=== PATIENT | male | born 1985 | race American Indian/Alaskan Native ===

== ENCOUNTER 2017-01-09 01:55 | Emergency (ER) | payer SELFPAY ==
[2017-01-09] MEDS ORDERED: DECADRON IM STA (06:01)
--- NOTE | 2017-01-09 06:01 | Emergency Department Report ---
ED Rash HPI - HPI Chief Complaint: Skin Rash Stated Complaint: ECZEMA Time Seen by Provider: 01/09/17 03:26 Duration: 3 Days Location: Back, Abdomen, Upper Extremities Suspected Cause: Other (reports flareup of eczema) Rash Symptoms: Yes Itching (to affected areas on back abdomen and upper extremity.), Yes Peeling (2 areas on back, abdomen and upper extremities), No Facial Swelling, No Tongue/Oral Swelling, No Breathing Difficulties, No Choking Sensation, No Wheezing/Dyspnea, No Blistering, No Fever, No Lightheaded, No Malaise, No Myalgias Severity: moderate (denies any pain but reports itching in) Other History: Patient here reports that he has a flare up of his eczema and he takes triamcinolone and would like to have refill. Denies any wheezing, cough, stridor, shortness of breath or chest pain. Denies any fever or chills. Denies Any nausea or vomiting. ED Review of Systems ROS: Stated complaint: ECZEMA Other details as noted in HPI Comment: All other systems reviewed and negative Constitutional: denies: chills, fever Eyes: denies: eye pain, eye discharge ENT: denies: ear pain, throat pain, congestion Respiratory: no symptoms reported Cardiovascular: denies: chest pain, palpitations, edema, syncope Gastrointestinal: denies: abdominal pain, nausea, vomiting, diarrhea, constipation Musculoskeletal: denies: back pain, joint swelling, arthralgia, myalgia Skin: rash, pruritus. denies: lesions Neurological: denies: headache, weakness, numbness, paresthesias, confusion, abnormal gait, vertigo ED Past Medical Hx - Past Medical History Previous Medical History?: Yes Hx Asthma: Yes Additional medical history: Eczema - Surgical History Past Surgical History?: No - Family History Family history: no significant - Social History Smoking Status: Never Smoker Substance Use Type: None - Medications Home Medications: Home Medications Medication Instructions Recorded Confirmed Last Taken Type Amoxicillin/K Clav Tab [Augmentin 1 tab PO Q12HR #14 tab 06/26/16 Unknown Rx 875 mg] Fluticasone [Flonase] 1 spray NS QDAY #1 bottle 06/26/16 Unknown Rx Triamcinolone Aceton 0.1% (Nf) 1 applic TP BID #2 tube 01/09/17 Unknown Rx [Kenalog (NF)] methylPREDNISolone [Medrol Dose 4 mg PO DAILY #1 tab.ds.pk 01/09/17 Unknown Rx Nikko] Rash Exam - Exam General: Vital signs noted. No distress. Alert and acting appropriately. This is a 31-year-old male well-nourished well-developed in no acute distress HEENT: No Periorbital Edema, No Conjuctival Injection, No Chemosis, No Perioral Edema, No Tongue Edema, No Uvular Edema, No Compromised Airway, No Drooling Lungs: Yes Good Air Exchange, No Wheezes, No Ronchi, No Stridor, No Cough, No Labored Respirations, No Retractions, No Use of Accessory Muscles, No Other Abnormal Lung Sounds Skin: Yes Excoriations, Yes Other (patient with eczematous rash to anterior and posterior torso and upper extremity. Hyperpigmented, with scaling and dry skin. ), No Urticarial Rash, No Maculopapular Rash, No Morbilliform rash, No Weeping, No Tenderness, No Erythema, No Edema, No Encrustations Other: Positive: Abdomen Normal, Neurologic Normal, Musculoskeletal Normal ED Course Vital Signs 01/09/17 02:30 Temperature 98.1 F Pulse Rate 62 Respiratory 16 Rate Blood Pressure 160/84 O2 Sat by Pulse 98 Oximetry - Reevaluation(s) Reevaluation #1: 01/09/17 07:03 She given Decadron 10 mg IM in emergency room for rash ED Medical Decision Making - Medical Decision Making ED course: Patient here reports eczema flare without any respiratory symptoms. Given Decadron 10 mg IM. Patient will be given and steroids orally and topically for treatment. Fernie understands that he has a follow-up with dermatology and/or his primary care physician which she does say he has a primary care physician. Assessment/plan 1. Eczema flare 2. Pruritic disorder Pt instructed to follow-up with his primary care physician and/or cobol application developer in 2 days. Patient given for Medrol Dosepak, Atarax and triamcinolone ointment. Critical care attestation.: If time is entered above; I have spent that time in minutes in the direct care of this critically ill patient, excluding procedure time. ED Disposition Clinical Impression: Pruritus Eczema Qualifiers: Eczema type: unspecified Qualified Code(s): L30.9 - Dermatitis, unspecified Disposition: DC-01 TO HOME OR SELFCARE Is pt being admited?: No Does the pt Need Aspirin: No Condition: Stable Instructions: Itchy Skin (ED), Eczema (ED) Additional Instructions: Please keep affected area clean and dry Increase your fluid intake Follow Up with cobol application developer as instructed Take medication as prescribed Prescriptions: methylPREDNISolone [Medrol Dose Nikko] 4 mg PO DAILY #1 tab.ds.pk Triamcinolone Aceton 0.1% (Nf) [Kenalog (NF)] 1 applic TP BID #2 tube Referrals: PRIMARY CARE, [Primary Care Provider] - 3-5 Days YSABEL GILLIAM MD [Staff Physician] - 3-5 Days Forms: Accompanied Note, Work/School Release Form(ED)
[2017-01-09 07:43] VITALS: BP 141/91
== END 2017-01-09 07:43 | disposition home or self-care (01) ==
LOC: ED 01:55
DX: L30.9 Dermatitis, unspecified (principal); L29.9 Pruritus, unspecified; J45.909 Unspecified asthma, uncomplicated
CPT/HCPCS: 96372

== ENCOUNTER 2017-07-03 00:34 | Emergency (ER) | payer SELFPAY ==
[2017-07-03] MEDS ORDERED: NACL 0.9% 1000 ML 1,000 ML ONE (00:54)
[2017-07-03] MEDS ORDERED: PEPCID IV ONE (04:14)
--- NOTE | 2017-07-03 05:35 | Emergency Department Report ---
ED Rash HPI - HPI Chief Complaint: Skin Rash Stated Complaint: ECZEMA Time Seen by Provider: 07/03/17 05:28 Duration: 1 week Location: Back, Upper Extremities (elbows), Lower Extremities (shins ) Suspected Cause: Unknown Rash Symptoms: Yes Itching, Yes Peeling, No Facial Swelling, No Tongue/Oral Swelling, No Breathing Difficulties, No Choking Sensation, No Wheezing/Dyspnea, No Blistering, No Fever, No Lightheaded, No Malaise, No Myalgias Severity: severe Other History: This is a 31 y.o. male presents with eczema rash to bilateral elbows, back, and bilateral shins. Patient states his skin has been clear for years and don't know what is causing flare to reoccur. He went to ER last month and given steroids and trimacinolone cream. He is currently taking steriods and need more cream. Denies SOB, swelling, and discharge. ED Review of Systems ROS: Stated complaint: ECZEMA Other details as noted in HPI Constitutional: denies: chills, fever Respiratory: denies: cough, shortness of breath, wheezing Cardiovascular: denies: chest pain, palpitations Gastrointestinal: denies: abdominal pain, nausea, diarrhea Skin: rash (itchy rash to elbows, shins, and back). denies: lesions Neurological: denies: headache, weakness, paresthesias ED Past Medical Hx - Past Medical History Previous Medical History?: Yes Hx Asthma: Yes Additional medical history: Eczema - Social History Smoking Status: Never Smoker - Medications Home Medications: Home Medications Medication Instructions Recorded Confirmed Last Taken Type Amoxicillin/K Clav Tab [Augmentin 1 tab PO Q12HR #14 tab 06/26/16 Unknown Rx 875 mg] Fluticasone [Flonase] 1 spray NS QDAY #1 bottle 06/26/16 Unknown Rx Triamcinolone Aceton 0.1% (Nf) 1 applic TP BID #2 tube 01/09/17 Unknown Rx [Kenalog (NF)] methylPREDNISolone [Medrol Dose 4 mg PO DAILY #1 tab.ds.pk 01/09/17 Unknown Rx Nikko] Triamcinolone 0.1% [Kenalog 0.1% 1 applic TP TID #60 gram 07/03/17 Unknown Rx CREAM] Rash Exam - Exam General: Vital signs noted. No distress. Alert and acting appropriately. HEENT: No Periorbital Edema, No Conjuctival Injection, No Chemosis, No Perioral Edema, No Tongue Edema, No Uvular Edema, No Compromised Airway, No Drooling Lungs: Yes Good Air Exchange, No Wheezes, No Ronchi, No Stridor, No Cough, No Labored Respirations, No Retractions, No Use of Accessory Muscles, No Other Abnormal Lung Sounds Heart: Yes Regular, No Murmur Skin: Yes Erythema, Yes Other (erythema crusting rash to posterior elbows, back , and anterior shins), No Urticarial Rash, No Maculopapular Rash, No Morbilliform rash, No Bulla(e), No Excoriations, No Weeping, No Tenderness, No Edema, No Encrustations ED Course Vital Signs 07/03/17 00:40 Temperature 98.3 F Pulse Rate 74 Respiratory 20 Rate Blood Pressure 152/94 O2 Sat by Pulse 99 Oximetry ED Medical Decision Making - Medical Decision Making This is a 31-year-old male that presents with itchy rash. History of eczema for 1 week. Patient is stable and was examined by me. He is currently taking prednisone and out of triamcinolone cream. Refilled kenalog cream. Referral to dermatology. Discussed plan with patient. He agreed with ER plan. Discharged home stable. Follow up with dermatology. Critical care attestation.: If time is entered above; I have spent that time in minutes in the direct care of this critically ill patient, excluding procedure time. ED Disposition Clinical Impression: Acute eczema Disposition: DC-01 TO HOME OR SELFCARE Is pt being admited?: No Does the pt Need Aspirin: No Condition: Stable Instructions: Eczema (ED) Additional Instructions: Keep skin moisturized daily after bathing with eucerion or estee lotion. Follow up with dermatology or [facility]. Prescriptions: Triamcinolone 0.1% [Kenalog 0.1% CREAM] 1 applic TP TID #60 gram Referrals: [facility] [Outside] - 3-5 Days [facility] [Outside] - 3-5 Days [facility] [Outside] - 3-5 Days Time of Disposition: 06:00 Print Language: PUERTO RICAN
[2017-07-03 06:14] VITALS: BP 148/91
== END 2017-07-03 06:14 | disposition home or self-care (01) ==
LOC: ED 00:34
DX: L30.9 Dermatitis, unspecified (principal); J45.909 Unspecified asthma, uncomplicated
CPT/HCPCS: 99282; J7030

== ENCOUNTER 2020-04-02 09:28 | Emergency (ER) | payer SELFPAY ==
[2020-04-02 10:02] VITALS: BP 148/81
--- NOTE | 2020-04-02 11:43 | Emergency Department Report ---
ED General Adult HPI - General Chief complaint: Skin Rash Stated complaint: SKIN IRRITATION Time Seen by Provider: 04/02/20 10:24 Source: patient Mode of arrival: Ambulatory Limitations: No Limitations - History of Present Illness Initial comments: 34 yo AA M pt presents with complaints of eczema flare x 4-5 days. States rash is very itchy and mainly on his arms and torso. He denies an pain, redness, or drainage -: Sudden Severity scale (0 -10): 0 Improves with: none - Related Data Previous Rx's Medication Instructions Recorded Last Taken Type Amoxicillin/K Clav Tab [Augmentin 1 tab PO Q12HR #14 tab 06/26/16 Unknown Rx 875 mg] Fluticasone [Flonase] 1 spray NS QDAY #1 bottle 06/26/16 Unknown Rx Triamcinolone Aceton 0.1% (Nf) 1 applic TP BID #2 tube 01/09/17 Unknown Rx [Kenalog (NF)] methylPREDNISolone [Medrol Dose 4 mg PO DAILY #1 tab.ds.pk 01/09/17 Unknown Rx Nikko] Triamcinolone 0.1% [Kenalog 0.1% 1 applic TP TID #60 gram 07/03/17 Unknown Rx CREAM] Triamcinolone Acetonide 3 gm TP TID PRN 7 Days #454 gram 04/02/20 Unknown Rx Allergies Allergy/AdvReac Type Severity Reaction Status Date / Time No Known Allergies Allergy Verified 04/02/20 09:58 ED Review of Systems ROS: Stated complaint: SKIN IRRITATION Other details as noted in HPI Constitutional: denies: chills, fever, malaise Gastrointestinal: denies: nausea, vomiting Skin: rash ED Past Medical Hx - Past Medical History Previous Medical History?: Yes Hx Asthma: Yes Additional medical history: Eczema - Surgical History Past Surgical History?: No - Social History Smoking Status: Never Smoker - Medications Home Medications: Home Medications Medication Instructions Recorded Confirmed Last Taken Type Amoxicillin/K Clav Tab [Augmentin 1 tab PO Q12HR #14 tab 06/26/16 Unknown Rx 875 mg] Fluticasone [Flonase] 1 spray NS QDAY #1 bottle 06/26/16 Unknown Rx Triamcinolone Aceton 0.1% (Nf) 1 applic TP BID #2 tube 01/09/17 Unknown Rx [Kenalog (NF)] methylPREDNISolone [Medrol Dose 4 mg PO DAILY #1 tab.ds.pk 01/09/17 Unknown Rx Nikko] Triamcinolone 0.1% [Kenalog 0.1% 1 applic TP TID #60 gram 07/03/17 Unknown Rx CREAM] Triamcinolone Acetonide 3 gm TP TID PRN 7 Days #454 gram 04/02/20 Unknown Rx ED Physical Exam - General Limitations: No Limitations General appearance: alert, in no apparent distress - Head Head exam: Present: atraumatic, normocephalic - Eye Eye exam: Present: normal appearance - ENT ENT exam: Present: mucous membranes moist - Neck Neck exam: Present: normal inspection - Respiratory Respiratory exam: Absent: respiratory distress - Cardiovascular Cardiovascular Exam: Present: regular rate - Extremities Exam Extremities exam: Present: normal inspection - Back Exam Back exam: Present: normal inspection - Neurological Exam Neurological exam: Present: alert, oriented X3 - Psychiatric Psychiatric exam: Present: normal affect, normal mood - Skin Skin exam: Present: warm, dry, intact, normal color, rash (diffuse eczema rash noted to forearms and torso; no erythema, drainage, or cellulitic changes noted) ED Course Vital Signs 04/02/20 10:02 Temperature 98.1 F Pulse Rate 71 Respiratory 18 Rate Blood Pressure 148/81 [Right] O2 Sat by Pulse 100 Oximetry ED Medical Decision Making - Medical Decision Making 34 yo AA M pt presents with complaints of eczema flare x 4-5 days. States rash is very itchy and mainly on his arms and torso. He denies an pain, redness, or drainage Diffuse eczema noted on exam. Decadron Critical care attestation.: If time is entered above; I have spent that time in minutes in the direct care of this critically ill patient, excluding procedure time. ED Disposition Clinical Impression: Eczema Qualifiers: Eczema type: other Qualified Code(s): L30.8 - Other specified dermatitis Disposition: DC- TO HOME OR SELFCARE Is pt being admited?: No Condition: Stable Instructions: Eczema Prescriptions: Triamcinolone Acetonide 3 gm TP TID PRN 7 Days #454 gram PRN Reason: itching Referrals: ANTON CORDOVA MD [Staff Physician] - 3-5 Days (Eczema )
[2020-04-02] MEDS ORDERED: dexAMETHasone 20 MG/5 ML VIAL IV ONE (11:46)
== END 2020-04-02 12:11 | disposition home or self-care (01) ==
LOC: ED 09:28
DX: L30.8 Other specified dermatitis (principal); J45.909 Unspecified asthma, uncomplicated; Z79.899 Other long term (current) drug therapy
CPT/HCPCS: 96374; 99282; J1100

== ENCOUNTER 2021-01-02 14:07 | Emergency (ER) | payer SELFPAY ==
[2021-01-02 14:58] VITALS: BP 138/82
--- NOTE | 2021-01-02 15:50 | Emergency Department Report ---
ED General Adult HPI - General Chief complaint: Skin Rash Stated complaint: EZCEMA Time Seen by Provider: 01/02/21 15:26 Source: patient Mode of arrival: Ambulatory Limitations: No Limitations - History of Present Illness Initial comments: 35-year-old -[place] male patient presents with complaints of eczema flareup x2 to 3 days. States rash is very itchy and mainly on his arms and torso. He denies an pain, redness, or drainage. Patient reports hydrocortisone is not helping. - Related Data Previous Rx's Medication Instructions Recorded Last Taken Type Amoxicillin/K Clav Tab [Augmentin 1 tab PO Q12HR #14 tab 06/26/16 Unknown Rx 875 mg] Fluticasone [Flonase] 1 spray NS QDAY #1 bottle 06/26/16 Unknown Rx Triamcinolone Aceton 0.1% (Nf) 1 applic TP BID #2 tube 01/09/17 Unknown Rx [Kenalog (NF)] methylPREDNISolone [Medrol Dose 4 mg PO DAILY #1 tab.ds.pk 01/09/17 Unknown Rx Nikko] Triamcinolone 0.1% [Kenalog 0.1% 1 applic TP TID #60 gram 07/03/17 Unknown Rx CREAM] Triamcinolone Acetonide 3 gm TP TID PRN 7 Days #454 gram 01/02/21 Unknown Rx Allergies Allergy/AdvReac Type Severity Reaction Status Date / Time No Known Allergies Allergy Verified 04/02/20 09:58 ED Review of Systems ROS: Stated complaint: EZCEMA Other details as noted in HPI Constitutional: denies: diaphoresis, fever, malaise Musculoskeletal: denies: arthralgia Skin: rash ED Past Medical Hx - Past Medical History Previous Medical History?: Yes Hx Asthma: Yes Additional medical history: Eczema - Surgical History Past Surgical History?: No - Social History Smoking Status: Never Smoker - Medications Home Medications: Home Medications Medication Instructions Recorded Confirmed Last Taken Type Amoxicillin/K Clav Tab [Augmentin 1 tab PO Q12HR #14 tab 06/26/16 Unknown Rx 875 mg] Fluticasone [Flonase] 1 spray NS QDAY #1 bottle 06/26/16 Unknown Rx Triamcinolone Aceton 0.1% (Nf) 1 applic TP BID #2 tube 01/09/17 Unknown Rx [Kenalog (NF)] methylPREDNISolone [Medrol Dose 4 mg PO DAILY #1 tab.ds.pk 01/09/17 Unknown Rx Nikko] Triamcinolone 0.1% [Kenalog 0.1% 1 applic TP TID #60 gram 07/03/17 Unknown Rx CREAM] Triamcinolone Acetonide 3 gm TP TID PRN 7 Days #454 gram 01/02/21 Unknown Rx ED Physical Exam - General Limitations: No Limitations General appearance: alert, in no apparent distress - Head Head exam: Present: atraumatic, normocephalic - Eye Eye exam: Present: normal appearance - Respiratory Respiratory exam: Absent: respiratory distress - Cardiovascular Cardiovascular Exam: Present: regular rate - Neurological Exam Neurological exam: Present: alert, oriented X3 - Psychiatric Psychiatric exam: Present: normal affect, normal mood - Skin Skin exam: Present: warm, dry, intact, normal color, rash (Diffuse dry eczema attic rash noted bilaterally to extremities and torso; no erythema or drainage noted) ED Course Vital Signs 01/02/21 14:57 Temperature 97.8 F Pulse Rate 81 Respiratory 18 Rate Blood Pressure 138/82 O2 Sat by Pulse 97 Oximetry ED Medical Decision Making - Medical Decision Making 35-year-old -[place] male patient presents with complaints of eczema flareup x2 to 3 days. States rash is very itchy and mainly on his arms and torso . He denies an pain, redness, or drainage. Patient reports hydrocortisone is not helping. Triamcinolone given for eczema. Recommend follow-up with primary care for further treatment and evaluation of his eczema. He is well-appearing, his vitals are within normal limits, he is stable for discharge home. Strict return precautions were discussed in detail with patient verbalizes understanding Critical care attestation.: If time is entered above; I have spent that time in minutes in the direct care of this critically ill patient, excluding procedure time. ED Disposition Clinical Impression: Eczema Disposition: 01 HOME / SELF CARE / HOMELESS Is pt being admited?: No Condition: Stable Instructions: Eczema Prescriptions: Triamcinolone Acetonide 3 gm TP TID PRN 7 Days #454 gram PRN Reason: itching Referrals: [facility] [Provider Group] - 3-5 Days
== END 2021-01-02 16:00 | disposition home or self-care (01) ==
LOC: ED 14:07
DX: L30.9 Dermatitis, unspecified (principal); J45.909 Unspecified asthma, uncomplicated; Z98.890 Other specified postprocedural states; Z79.899 Other long term (current) drug therapy
CPT/HCPCS: 99281

== ENCOUNTER 2021-09-09 20:21 | Emergency (ER) | payer SELFPAY ==
[2021-09-09 21:33] VITALS: BP 131/58
== END 2021-09-10 00:25 | disposition left against medical advice (07) ==
LOC: ED 20:21
DX: R21 Rash and other nonspecific skin eruption (principal); Z53.21 Procedure and treatment not carried out due to patient leaving prior to being seen by health care provider

== ENCOUNTER 2021-09-10 14:45 | Emergency (ER) | payer SELFPAY ==
[2021-09-10 16:39] VITALS: BP 144/73
[2021-09-11] MEDS ORDERED: ASPIRIN 81 MG TAB CHEW ONE (09:11)
[2021-09-11] MEDS ORDERED: HEPARIN 10,000 UNITS/10 ML VIAL ONE (09:12)
== END 2021-09-11 15:52 | disposition left against medical advice (07) ==
LOC: ED 14:45
DX: L30.9 Dermatitis, unspecified (principal); Z53.21 Procedure and treatment not carried out due to patient leaving prior to being seen by health care provider
CPT/HCPCS: J1644